=== PATIENT | female | born 1940 | race Caucasian/White ===

== ENCOUNTER → 2018-07-14 | Outpatient (CLI) | payer MEDICARE, OTHER ==
[~2018-07-14] MED LIST: HEParin (CATH LAB) 0 ML IV ONE; LIDOCAINE 1% INJ 20 ML 20 ML VIAL ONE; MIDAZOLAM 5 MG/5 ML (VERSED) VIAL ONE; NITRO DRIP 25000 MCG/D5W 0 ML IV ONE; NS IV 1000 ML 0 ML ONE; fentaNYL INJECTION 100 MCG/2 ML AMP ONE
--- NOTE | 2018-07-14 18:57 | Diagnostic Imaging Report ---
CLINICAL INDICATION: Possible murmur. Comparison: None Exam: Real-time carotid Doppler duplex imaging is performed bilaterally. Peak systolic velocity, ICA/CCA peak systolic ratio, spectral analysis, and vascular morphology are studied. Findings: ARTERY VELOCITY Right Left CCA 0.56 m/s 0.61 m/s ICA 0.74 m/s 0.96 m/s ECA 0.94 m/s 0.77 m/s ICA/CCA 1.34 1.06 VERT.ART Antegrade Antegrade There is no significant atherosclerotic disease. Impression: There is no grayscale or Doppler evidence of significant vascular stenosis. Dictated by: Dictated on workstation # [id number]
== END ==
LOC: CARD 08:38
PROVIDERS: ATTEND Family Medicine
DX: R55 Syncope and collapse (principal); I34.0 Nonrheumatic mitral (valve) insufficiency
CPT/HCPCS: 93306; 93880

== ENCOUNTER → 2022-07-02 | Outpatient (CLI) | payer MEDICARE, OTHER | LOC: CARD 13:51 | PROVIDERS: ATTEND Internal Medicine Cardiovascular Disease | DX: I11.9 Hypertensive heart disease without heart failure (principal) | CPT/HCPCS: 93306 ==

== ENCOUNTER → 2022-08-13 | Outpatient (CLI) | payer MEDICARE, OTHER ==
[~2022-08-13] VITALS: Ht 162 cm; Wt 60.0 kg
[~2022-08-13] MED LIST changes: +CATHETER FLUSH 10 ML SYR IVP PRN; -HEParin (CATH LAB) 0 ML IV ONE; -LIDOCAINE 1% INJ 20 ML 20 ML VIAL ONE; -MIDAZOLAM 5 MG/5 ML (VERSED) VIAL ONE; -NITRO DRIP 25000 MCG/D5W 0 ML IV ONE; -NS IV 1000 ML 0 ML ONE; +REGADENOSON 0.4 MG/5 ML SYR (LEXISCAN) IV ONE; -fentaNYL INJECTION 100 MCG/2 ML AMP ONE
[2022-08-13 09:11] VITALS: BP 154/89
--- NOTE | 2022-08-17 01:18 | STRESS TEST ---
DATE OF SERVICE: 08/13/2022 RESTING AND POST REGADENOSON TECHNETIUM-99M TETROFOSMIN SPECT CT IMAGING ORDERING PHYSICIAN: Dr. Quiles. PRIMARY PHYSICIAN: Dr. Monreal. CLINICAL DIAGNOSIS: Hypertensive heart disease. Baseline images were carried out after injection of 10.82 mCi of technetium-99m tetrofosmin. This was followed by 0.4 mg regadenoson and 32 mCi of technetium-99m tetrofosmin for stress imaging. The electrocardiogram showed sinus rhythm. There was nonspecific T-wave abnormality. The electrocardiogram did not change significantly with regadenoson infusion. The patient tolerated the procedure well. Review of images at rest and following stress does not indicate any distinct perfusion defects consistent with significant myocardial ischemia or infarction. Gated images show normal global left ventricular systolic function with normal regional wall motion. Left ventricular ejection fraction is calculated to be 71%. Left ventricular end-diastolic volume is 39 mL, TID is absent (0.92). CONCLUSIONS: 1. No evidence of any significant myocardial ischemia or infarction on the study. 2. Normal regional wall motion. 3. Normal global left ventricular systolic function with a calculated ejection fraction of 71%. Job ID: [id number] DocumentID: [id number] Dictated Date: 08/16/2022 20:23:21 Interface Analyst Date: 08/17/2022 01:11:00 Dictated By: STELLA QUILES MD; MELONY; FACP; FACC;
== END ==
LOC: CARD 07:32
PROVIDERS: ATTEND Internal Medicine Cardiovascular Disease
DX: I11.9 Hypertensive heart disease without heart failure (principal)
CPT/HCPCS: 78452; 93017; A9502